=== PATIENT | male | born 1940 | race Caucasian/White ===

== ENCOUNTER 2022-03-15 09:06 | Day surgery (SDC) | payer OTHER, MEDICARE ==
[2022-03-10 11:30] VITALS: BMI 28.2
[2022-03-15] MEDS ORDERED: PROPOFOL 20 ML ONE ×2 (09:26)
[2022-03-15] MEDS ORDERED: MIDAZOLAM HCL 2 MG/2 ML SINGLE DOSE VIAL ONE (09:26)
[2022-03-15] MEDS ORDERED: BUPIVACAINE HCL/PF 0.25% (2.5MG/ML) 10 ML VIAL ONE (09:58)
[2022-03-15] MEDS ORDERED: LIDOCAINE HCL 2% (20ML MULTI-DOSE VIAL) ONE (09:58)
[2022-03-15 12:57] VITALS: TEMP 97.7
[2022-03-15 13:01] VITALS: BP 145/79; PULSE 68
== END 2022-03-15 11:20 | disposition home or self-care (01) ==
LOC: FASU 09:06
PROVIDERS: ATTEND Orthopaedic Surgery Hand Surgery
PROC: 0LN70ZZ Release Right Hand Tendon, Open Approach (ICD-10-PCS; principal; 2022-03-15 10:21)
DX: M65.331 Trigger finger, right middle finger (principal)